=== PATIENT | male | born 2000 | race African-American/Black ===

== ENCOUNTER → 2021-07-20 | Emergency (ER) | payer OTHER ==
[~2021-07-20] VITALS: Ht 190.5 cm; Wt 98.0 kg
[~2021-07-20] MED LIST: KETOROLAC TROMETH 30 MG/ML 1ML VIAL IM ONE
[2021-07-20 04:01] VITALS: BP 130/88
== END | disposition home or self-care (01) ==
LOC: ER 02:26
DX: S93.401A Sprain of unspecified ligament of right ankle, initial encounter (principal); Z88.6 Allergy status to analgesic agent; W19.XXXA Unspecified fall, initial encounter; Y93.23 Activity, snow (alpine) (downhill) skiing, snowboarding, sledding, tobogganing and snow tubing; Y92.89 Other specified places as the place of occurrence of the external cause; Y99.8 Other external cause status
CPT/HCPCS: 73610; 96372; 99283; J1885